=== PATIENT | female | born 1950 | race Caucasian/White ===

== ENCOUNTER 2017-06-24 05:32 | Inpatient (IN) | payer OTHER, MEDICARE ==
[2017-06-16 08:39] VITALS: BMI 40.0
--- NOTE | 2017-06-16 09:17 | PAT Medication Instructions ---
Service Date Jun 16, 2017. Current Home Medication List Acetaminophen (Tylenol), 500 MG PO UD PRN for HEADACHES Cholecalciferol (Vitamin D3), 1 TAB PO 2XWK Citalopram (Citalopram Hydrobromide), 20 MG PO QAM Fluticasone Propionate (Nasal) (Flonase Allergy Relief), 1 DOSE KAREEM PRN PRN for SINUS CONGESTION Levothyroxine Sodium (Levothyroxine Sodium), 0.5 TAB PO QAM Lisinopril (Prinivil), 12.5 MG PO QAM Simvastatin (Zocor), 40 MG PO QPM Tramadol (Ultram), 1-2 TAB PO UD PRN for Pain Zolpidem Tartrate (Zolpidem Tartrate), 1 TAB PO HS [Vtamin C ], 1 DOSE PO 2XWK Medication Instructions For Your Scheduled Surgery - Check with your surgeon for instructions for: Tramadol (Ultram), 1-2 TAB PO UD PRN for Pain - Hold the following medications the morning of surgery: [Vitamin C ], 1 DOSE PO 2XWK Lisinopril (Prinivil), 12.5 MG PO QAM Cholecalciferol (Vitamin D3), 1 TAB PO 2XWK - Take the following medications the morning of surgery with a sip of water: Citalopram (Citalopram Hydrobromide), 20 MG PO QAM Levothyroxine Sodium (Levothyroxine Sodium), 0.5 TAB PO QAM Fluticasone Propionate (Nasal) (Flonase Allergy Relief), 1 DOSE KAREEM PRN PRN for SINUS CONGESTION (if needed) Acetaminophen (Tylenol), 500 MG PO UD PRN for HEADACHES - Take the following medications as scheduled the night before surgery: Zolpidem Tartrate (Zolpidem Tartrate), 1 TAB PO HS Simvastatin (Zocor), 40 MG PO QPM Acetaminophen (Tylenol), 500 MG PO UD PRN for HEADACHES OTHERWISE NOTHING TO EAT OR DRINK AFTER MIDNIGHT If you have any questions please call us at [phone] or [phone] or [phone]
[2017-06-16 09:53] LABS: BASO % 0.2 %; BASO ABS # 0.02 K/uL (0-0.2); COMPLETE YES; EOS % 2.6 %; HEMATOCRIT 46.1 % (37-47); IG% 0.1 %; LYMPH % 24.3 %; LYMPH ABS # 1.96 K/uL (1.2-3.4); MEAN CELL VOLUME 89.7 fL (80-100); MEAN CORPUSCULAR HEMOGLOBIN 29.2 pg (25-34); MEAN CORPUSCULAR HGB CONC 32.5 g/dl (32-36); MEAN PLATELET VOLUME 9.8 fL (7.4-10.4); MONO % 9.8 %; PLATELET COUNT 213 K/uL (130-400); RED BLOOD COUNT 5.14 M/uL (4.2-5.4); WHITE BLOOD COUNT 8.06 K/uL (4.8-10.8)
[2017-06-16 10:02] LABS: PROTHROMBIN TIME (PATIENT) 10.5 SECONDS (9.0-12.0)
--- NOTE | 2017-06-16 10:05 | DIAGNOSTIC IMAGING REPORT ---
CHEST PREADMISSION(PA/LAT) CLINICAL HISTORY: 67 years-old Female presenting with preoperative assessment. TECHNIQUE: PA and lateral views of the chest were obtained. COMPARISON: None. FINDINGS: Atherosclerosis of aortic arch. Cardiac silhouette normal in size. Mildly low lung volumes with hypoventilatory changes. Lungs and pleural spaces clear. Degenerative changes of the thoracic spine. Upper abdomen normal. IMPRESSION: 1. No acute cardiopulmonary disease. Electronically signed by: Weston Joyce M.D. 06/16/2017 10:03 AM Dictated Date/Time: 06/16/2017 10:03 AM
[2017-06-16 10:08] LABS: MANUAL MICROSCOPIC REQUIRED? NO; REVIEW REQ? NO; URINE APPEARANCE CLEAR (CLEAR); URINE BILIRUBIN NEG (NEG); URINE COLOR YELLOW; URINE EPITHELIAL CELL AUTO >30 /lpf (0-5); URINE NITRITE NEG (NEG); URINE PH 6.5 (4.5-7.5); URINE SPECIFIC GRAVITY 1.018 (1.000-1.030); UROBILINOGEN NEG (NEG)
[2017-06-16 11:07] LABS: ESTIMATED AVERAGE GLUCOSE 140 mg/dl; HA1C FLAG Normal (Normal)
[2017-06-16 11:14] LABS: BUN/CREATININE RATIO 18.4 (10-20); CALCIUM 9.4 mg/dl (8.5-10.1); CREATININE 0.82 mg/dl (0.60-1.20); POTASSIUM 4.4 mmol/L (3.5-5.1)
--- NOTE | 2017-06-23 13:42 | HISTORY & PHYSICAL EXAMINATION ---
DATE OF ADMISSION: 06/24/2017 HISTORY OF PRESENT ILLNESS: This is a very pleasant 67-year-old white female, 5 foot,205 pounds with complaints of ongoing pain attributed to her left knee. She presents for left knee DJD for left total knee arthroplasty. She has failed attempts at conservative management including physical therapy, anti-inflammatories, relative rest, activity modification, injections, viscosupplementations and presents for left total knee arthroplasty. PAST MEDICAL HISTORY: Significant for anxiety. She denies history of hypertension, hypercholesterolemia or other medical problems. No history of diabetes or thyroid disease is noted. FAMILY HISTORY: Otherwise unremarkable and noncontributory. SOCIAL HISTORY: The patient denies history of alcohol use. Denies smoking or recreational drug use. ALLERGIES: None. MEDICATIONS: Include lisinopril 10 mg p.o. daily, simvastatin 40 mg p.o. at bedtime, levothyroxine 125 mcg one-half tab p.o. daily, tramadol 50 mg p.o. 4 times daily. PAST SURGICAL HISTORY: Significant for tonsillectomy in 1961, tubal ligation in 1976, trigger thumb in 2003, trigger finger in 2011, colonoscopy in 2011. REVIEW OF SYSTEMS: Otherwise unremarkable. See history of present illness for pertinent positives. PHYSICAL EXAMINATION: GENERAL: A very pleasant 67-year-old white female, alert and oriented x3. HEENT: Atraumatic, normocephalic. HEART: Regular at 72 beats per minute. No murmurs noted. LUNGS: Clear. No rales, rhonchi, or wheezes noted. ABDOMEN: Soft, nontender, nondistended. Bowel sounds are present in all 4 quadrants. RECTAL: No rectal examination was performed. MUSCULOSKELETAL: Consistent with that of severe end-stage DJD of the left knee. IMAGING DATA: X-rays revealed there to be evidence of varus alignment, subchondral sclerosis, subchondral cystic changes and medial osteophyte changes. PLAN: Total knee arthroplasty, postoperative pain management, DVT prophylaxis as noted is noted. MTDD
[~2017-06-24] VITALS: Ht 152.4 cm; Wt 94.7 kg
[2017-06-24] VITALS (8 sets, daily range): BP systolic 94–129; BP diastolic 62–85; PULSE 62–78; TEMP 36.3–36.8; O2SAT 92–98; Ht 152.4 cm; Wt 94.7 kg
[~2017-06-24 05:32] MED LIST: ACET-1256 PO; AMB/10 PO; CHOL1000 PO; CITA40TA4 PO; FLUT0.15 NAE; LEVO125T4 PO; LISI10TA PO; SIMV40TA2 PO; TRAM-10 PO; [UNRECOGNIZED DRUG - OTHER] PO
[2017-06-24] MEDS ORDERED: CEFAZOLIN 2000 MG/60 ML D5W 60 ML IV SCH (06:00)
[2017-06-24] MEDS ORDERED: LACTATED RINGER'S 1000ML IV SCH (06:00)
[2017-06-24] MEDS ORDERED: CeleBREX 200 MG CAP PO SCH (06:00)
[2017-06-24] MEDS ORDERED: LACTATED RINGER'S 1000ML 1,000 ML IV SCH (06:00)
[2017-06-24] MEDS ORDERED: FAMOTIDINE 20 MG TAB PO SCH (06:00)
[2017-06-24] MEDS ORDERED: ACETAMINOPHEN 500 MG TAB PO SCH (06:00)
[2017-06-24] MEDS ORDERED: LACTATED RINGER'S 1000ML 500 ML IV ONE (06:00)
[2017-06-24] MEDS ORDERED: DEXAMETHASONE 4 MG TAB PO SCH (06:00)
[2017-06-24] MEDS ORDERED: GABAPENTIN 300 MG CAP PO SCH (06:00)
[2017-06-24] MEDS ORDERED: ROPIVACAINE 5MG/ML 30 ML 150 MG, BUPIVACAINE/EPINEPHR 0.5% MPF 30 ML, KETOROLAC TROMETH... INFIL SCH ×7 (06:00)
[2017-06-24] MEDS ORDERED: METOCLOPRAMIDE HCL 10 MG TAB PO SCH (06:00)
[2017-06-24] MEDS ORDERED: BUPIVACAINE 0.5 % 5 MG/1 ML PF 10ML VIAL ONE (06:31)
[2017-06-24] MEDS ORDERED: BUPIVACAINE 0.25% 30 ML VIAL ONE (06:31)
[2017-06-24] MEDS: TRANEXAMIC ACID INJ 1,000 MG in SODIUM CHLORIDE 0.9% 100ML 100 ML IV SCH ×2 (06:35→10:39)
[2017-06-24] MEDS ORDERED: MIDAZOLAM HCL 1 MG/ML 2ML VIAL ONE ×2 (06:57→08:30)
--- NOTE | 2017-06-24 07:08 | History & Physical Bridge Note ---
H&P Re-Evaluation Bridge Note: I have examined the patient, reviewed the History & Physical and in the interval since the performance of the History & Physical I have noted the following changes of clinical significance: No changes noted
[2017-06-24] MEDS ORDERED: ORTHO JOINT ANESTHETIC ONE (07:14)
[2017-06-24] MEDS ORDERED: POVIDONE-IODINE OP SOLN 30 ML BTL ONE (07:15)
[2017-06-24] MEDS ORDERED: BACITRACIN 50000 UNIT VIAL ONE (07:15)
[2017-06-24] MEDS ORDERED: KETAMINE HCL INJ 50 MG/ML 10 ML VIAL ONE (08:47)
[2017-06-24] MEDS ORDERED: SODIUM CHLORIDE 0.9% INJ 10 ML VIAL ONE (08:47)
[2017-06-24] MEDS ORDERED: LIDOCAINE HCL 2% 2 ML VIAL (20MG/ML) ONE (08:52)
[2017-06-24] MEDS ORDERED: GLYCOPYRROLATE INJ 0.2 MG/ML VIAL ONE (08:52)
[2017-06-24] MEDS ORDERED: PROPOFOL IV EMULSION 10 MG/ML 20 ML VIAL IV ONE ×2 (08:52→09:10)
[2017-06-24] MEDS ORDERED: LABETALOL HCL IV 5 MG/ML 20ML IV PRN (09:15)
[2017-06-24] MEDS ORDERED: HYDROmorphone INJ 1 MG/ML SYR IV PRN (09:15)
[2017-06-24] MEDS ORDERED: ATROPINE SULFATE 0.1 MG/ML 5ML SYR IV PRN (09:15)
[2017-06-24] MEDS ORDERED: EpHEDrine SULFATE INJ 50 MG/ML AMP IV PRN (09:15)
[2017-06-24] MEDS ORDERED: ONDANSETRON INJ 2 MG/ML 2 ML VIAL IV PRN ×2 (09:15→10:00)
[2017-06-24] MEDS ORDERED: FENTANYL CITRATE INJ 50 MCG/1 ML 2 ML VIAL IV PRN (09:15)
[2017-06-24] MEDS ORDERED: MEPERIDINE HCL 25 MG/ML CARP IV PRN (09:15)
--- NOTE | 2017-06-24 09:27 | [facility] Operative Report ---
Operative Report Operative Date Jun 24, 2017. Pre-Operative Diagnosis Left Knee Degenerative Joint Disease Post-Operative Diagnosis Left Knee Degenerative Joint Disease Procedure(s) Performed Left Total Knee Arthroplasty Cemented utilizing Small & Nephew journey 2 patient matched total knee arthroplasty size 3 femur to tibia 12 poly-[address] Nathan Roberts Auditing Specialist Surgeon(s) Barbie Escoto PA-C Estimated Blood Loss 5cc Findings Patient presents with severe end-stage Tri-Chlor milligrams degenerative joint disease after failing attempts at conservative management including injections anti-inflammatories activity modifications bracing presents for total knee arthroplasty times surgery noted to be evidence of medial osteophyte subchondral sclerosis varus alignment DJD of the knee Specimens As Per Surgeon Izzy Bello. Left Knee Bone and Tissue Complication(s) None Disposition Recovery Room / PACU Indications Patient presents after failing times a conservative management including physical therapy anti-inflammatories relative rest activity modification bracing presents for left total knee arthroplasty. Description of Procedure After proper prepping and draping of the left lower extremity anterior midline incision was made over the region of the extensor extensor mechanism after meticulous hemostasis was obtained and maintained in subcutaneous tissues a medial parapatellar incision was made The patella was subluxed lateralward the medial lateral gutter were cleaned from any hypertrophic synovitis and scar tissue of the distal femoral block was placed and the distal femoral osteotomy cut was made subsequently the chamfers anterior and posterior osteotomy cuts were made utilizing the 4-in-1 block the tibia was subsequently subluxed anteriorward medial and ateral meniscal remnants were excised in their entirety remnants of the anterior and posterior cruciate ligaments were excised in their entirety excellent exposure of the proximal tibia was obtained the tibial osteotomy guide was placed on the proximal tibial osteotomy cut was made once again the knee was irrigated with copious amounts of sterile saline solution the patella was subsequently everted lateralward thickened scar tissue around the patella was removed the patella was subsequently cut utilizing a freehand technique and was drilled prepared for final preparation and placement of patella socially flexion-extension gaps were checked and the equal and symmetric trials were placed to the appropriate femoral and tibial trials with poly-spacer being placed for equal flexion and extension gaps and full range of motion including extension to 0 and flexion to 140 the trial components after having been taken to recovery range of motion was subsequently removed meticulous hemostasis was obtained and maintained subsequently a knee block injection of joint cocktail including ropivacaine 0.5% 150 mg. Bupivacaine 0.5 % epinephrine 1-200,030 mL's toradol 30 mg dexamethasone 4 mg ketamine 10 mg clonidine 100 micrograms normal saline solution 30 mg was infiltrated into the soft tissues of the posterior knee medial lateral gutters and periosteal synovium special attention was paid to protect neurovascular structures at all times subsequently trial components having been removed the knee was irrigated with sterile saline solution. debris was removed the proximal tibia was subsequently prepared and was made ready for the placement of the tibial component tibial component was also cemented and tamped into position the femoral component was subsequently placed and cemented in the position the patellar component was subsequently cemented in position because hemostasis once again obtained and maintained wound having been thoroughly irrigated with debridement and debridement lavage was performed as well as a medial parapatellar incision closed with #1 Vicryl in interrupted fashion subcutaneous was closed with #2 Vicryl skin was closed with skin clips. PA-C was necessary for prepping and drapping as well as wound closure of deep fascia Sub cutaneous tissue and skin and was necessary for the case. A sterile compressive dressing was placed patient was taken to recovery in stable condition of report dictated by Armando I attest to the content of the Intraoperative Record and any orders documented therein. Any exceptions are noted below. I attest to the content of the Intraoperative Record and any orders documented therein. Any exceptions are noted below.
[2017-06-24] MEDS ORDERED: MoRPHine SULFATE 2 MG/ML CARP IV PRN (10:00)
[2017-06-24] MEDS ORDERED: FLUTICASONE PROPIONATE NA SPR 16 GM BTL NAE PRN (10:00)
[2017-06-24] MEDS ORDERED: ALUMINUM/MAGNESIUM/SIMETH (MAALOX MAX) 30 ML UDC PO PRN (10:00)
[2017-06-24] MEDS ORDERED: SOD PHOSPHATE/SOD BIPHOSPHATE ENEMA 132 ML BTL PR PRN (10:00)
[2017-06-24] MEDS ORDERED: MAGNESIUM HYDROXIDE SUSP 30 ML UDC PO PRN (10:00)
[2017-06-24] MEDS ORDERED: BISACODYL 10 MG SUPP PR PRN (10:00)
--- NOTE | 2017-06-24 10:39 | DIAGNOSTIC IMAGING REPORT ---
L KNEE 1 OR 2 VIEWS ROUTINE CLINICAL HISTORY: Postoperative evaluation. COMPARISON: None FINDINGS: Alignment of the total left knee arthroplasty is anatomic. There is no periprosthetic fracture or unexpected radiopaque foreign body. Surgical drains are in place. IMPRESSION: Expected findings following total left knee arthroplasty. Electronically signed by: Carlitos Ashley M.D. 06/24/2017 10:38 AM Dictated Date/Time: 06/24/2017 10:37 AM
--- NOTE | 2017-06-24 11:01 | Anesthesiology Progress Note ---
Anesthesia Post Op Note Date & Time Jun 24, 2017 at 11:01 Vital Signs Pain Intensity: 0 Vital Signs Past 12 Hours Date Time Temp Pulse Resp B/P (MAP) Pulse Ox O2 Delivery O2 Flow Rate FiO2 06/24/17 10:40 36.4 74 18 97/65 96 2 06/24/17 10:30 36.4 67 18 96 2 06/24/17 10:20 74 18 96/51 95 2 06/24/17 10:10 73 16 97/65 95 2 06/24/17 10:00 77 16 107/95 97 2 06/24/17 09:54 36.8 79 16 109/69 95 2 06/24/17 05:58 36.7 78 20 129/85 98 Room Air Notes Mental Status: alert / awake / arousable, participated in evaluation Pt Amnestic to Procedure: Yes Nausea / Vomiting: adequately controlled Pain: adequately controlled Airway Patency, RR, SpO2: stable & adequate BP & HR: stable & adequate Hydration State: stable & adequate Neuraxial Anesthesia: was administered, sensory block is resolving Anesthetic Complications: no major complications apparent
[2017-06-24] MEDS: D5W AND 1/2NSS + 20MEQ KCL 1,000 ML IV SCH ×2 (12:27→21:39)
[2017-06-24] MEDS: ACETAMINOPHEN 500 MG TAB PO SCH ×2 (15:29→21:39)
[2017-06-24] MEDS ORDERED: CEFAZOLIN 2000MG IV PUSH 10 ML IV SCH (16:00)
[2017-06-24] MEDS: KETOROLAC TROMETHAMINE 15 MG/ML VIAL IV. SCH ×2 (16:04→21:39)
[2017-06-24] MEDS: CEFAZOLIN IV 2,000 MG in SYRINGE 0 ML IV SCH ×2 (16:24→23:57)
[2017-06-24] MEDS: ASPIRIN 81 MG ECTAB PO SCH (20:59)
[2017-06-24] MEDS: ZOLPIDEM TARTRATE 5 MG TAB PO PRN ×2 (20:59→22:45)
[2017-06-24] MEDS: SIMVASTATIN 40 MG TAB PO SCH (20:59)
[2017-06-24] MEDS: SENNA 8.6 MG TAB PO SCH (20:59)
[2017-06-25] VITALS (8 sets, daily range): BP systolic 102–123; BP diastolic 69–76; PULSE 62–76; TEMP 36.6–37; O2SAT 91–96
[2017-06-25] MEDS: KETOROLAC TROMETHAMINE 15 MG/ML VIAL IV. SCH ×2 (04:06→10:32)
[2017-06-25] MEDS: ACETAMINOPHEN 500 MG TAB PO SCH ×3 (05:51→21:58)
[2017-06-25] MEDS: LEVOTHYROXINE 125 MCG TAB PO SCH (05:51)
[2017-06-25 06:13] LABS: HEMATOCRIT 40.8 % (37-47); MEAN CELL VOLUME 89.3 fL (80-100); MEAN CORPUSCULAR HEMOGLOBIN 28.9 pg (25-34); MEAN CORPUSCULAR HGB CONC 32.4 g/dl (32-36); MEAN PLATELET VOLUME 10.4 fL (7.4-10.4); PLATELET COUNT 207 K/uL (130-400); RED BLOOD COUNT 4.57 M/uL (4.2-5.4); WHITE BLOOD COUNT 14.99 K/uL (4.8-10.8)
[2017-06-25 06:45] LABS: BUN/CREATININE RATIO 14.9 (10-20); CALCIUM 8.5 mg/dl (8.5-10.1); CREATININE 0.85 mg/dl (0.60-1.20); POTASSIUM 3.9 mmol/L (3.5-5.1)
[2017-06-25] MEDS: D5W AND 1/2NSS + 20MEQ KCL 1,000 ML IV SCH (08:07)
[2017-06-25] MEDS: OXYCODONE HCL IR 5 MG TAB (IMMEDIATE RELEASE) PO PRN ×3 (08:36→19:36)
--- NOTE | 2017-06-25 09:00 | Orthopedic Progress Note ---
Orthopedic Progress Note Date of Service Jun 25, 2017. Subjective Post OP Day: 1 Reports: feeling well Objective N/V intact, dressing C/D/I (Hemovac in place), toes mobile Date Time Temp Pulse Resp B/P (MAP) Pulse Ox O2 Delivery O2 Flow Rate FiO2 06/25/17 07:20 Room Air 06/25/17 07:10 36.8 69 24 102/69 (80) 96 Room Air 06/25/17 03:46 36.6 62 16 107/70 (82) 96 Room Air 06/24/17 23:55 Room Air 06/24/17 23:05 36.8 63 16 102/66 (78) 93 Room Air 06/24/17 19:00 36.4 62 16 105/65 (78) 92 Room Air 06/24/17 15:45 36.5 71 16 104/66 (79) 93 Room Air 06/24/17 15:30 Room Air 06/24/17 14:08 36.5 77 16 94/66 (75) 95 2.0 06/24/17 13:07 36.3 77 16 96/63 (74) 96 2.0 06/24/17 11:58 36.3 68 16 104/70 (81) 94 2.0 06/24/17 11:27 73 16 97/62 (74) 95 2.0 06/24/17 11:00 Nasal Cannula 2.0 06/24/17 11:00 Nasal Cannula 2.0 06/24/17 10:40 36.4 74 18 97/65 96 2 06/24/17 10:30 36.4 67 18 96 2 06/24/17 10:20 74 18 96/51 95 2 06/24/17 10:10 73 16 97/65 95 2 06/24/17 10:00 77 16 107/95 97 2 06/24/17 09:54 36.8 79 16 109/69 95 2 Laboratory Results 24 Hours: Test 06/25/17 05:55 Hematocrit 40.8 % Hemoglobin 13.2 g/dL Assessment & Plan Assessment: 67 yo female stable POD #1 s/p left TKA Plan: 1. Med management 2. DVT prophylaxis- ASA, SCDs 3. PT/OT 4. D/C planning- home w/ OPPT
[2017-06-25] MEDS: CITALOPRAM 20 MG TAB PO SCH (09:48)
[2017-06-25] MEDS: ASPIRIN 81 MG ECTAB PO SCH ×2 (09:49→20:32)
[2017-06-25] MEDS: MULTIVITAMIN TAB PO SCH (09:51)
[2017-06-25] MEDS: LISINOPRIL 5 MG TAB PO SCH (09:53)
[2017-06-25] MEDS: PANTOprazole SOD 40 MG TAB PO SCH (09:54)
--- NOTE | 2017-06-25 12:43 | Anesthesiology Progress Note ---
Anesthesia Post Op Note Date & Time Jun 25, 2017 at 12:42 Vital Signs Pain Intensity: 3.0 Vital Signs Past 12 Hours Date Time Temp Pulse Resp B/P (MAP) Pulse Ox O2 Delivery O2 Flow Rate FiO2 06/25/17 11:20 36.7 76 24 108/70 (83) 91 Room Air 06/25/17 10:50 96 Room Air 06/25/17 07:20 Room Air 06/25/17 07:10 36.8 69 24 102/69 (80) 96 Room Air 06/25/17 03:46 36.6 62 16 107/70 (82) 96 Room Air Notes Mental Status: alert / awake / arousable, participated in evaluation Pt Amnestic to Procedure: Yes Nausea / Vomiting: adequately controlled Pain: adequately controlled Airway Patency, RR, SpO2: stable & adequate BP & HR: stable & adequate Hydration State: stable & adequate Anesthetic Complications: no major complications apparent
[2017-06-25] MEDS: CeleBREX 200 MG CAP PO SCH (20:32)
[2017-06-25] MEDS: SENNA 8.6 MG TAB PO SCH (20:32)
[2017-06-25] MEDS: ZOLPIDEM TARTRATE 5 MG TAB PO PRN ×2 (20:32→21:58)
[2017-06-25] MEDS: SIMVASTATIN 40 MG TAB PO SCH (20:32)
[2017-06-26] MEDS: LEVOTHYROXINE 125 MCG TAB PO SCH (05:24)
[2017-06-26] MEDS: OXYCODONE HCL IR 5 MG TAB (IMMEDIATE RELEASE) PO PRN ×2 (05:25→10:04)
[2017-06-26] MEDS: ACETAMINOPHEN 500 MG TAB PO SCH (05:25)
[2017-06-26 06:18] VITALS: BP 116/77; PULSE 79; TEMP 36.9; O2SAT 95
[2017-06-26] MEDS: MULTIVITAMIN TAB PO SCH (07:32)
[2017-06-26] MEDS: CITALOPRAM 20 MG TAB PO SCH (07:32)
[2017-06-26] MEDS: PANTOprazole SOD 40 MG TAB PO SCH (07:32)
[2017-06-26] MEDS: ASPIRIN 81 MG ECTAB PO SCH (07:32)
[2017-06-26] MEDS: CeleBREX 200 MG CAP PO SCH (07:33)
[2017-06-26] MEDS: LISINOPRIL 5 MG TAB PO SCH (07:34)
--- NOTE | 2017-06-26 08:06 | Orthopedic Progress Note ---
Orthopedic Progress Note Date of Service Jun 26, 2017. Subjective Post OP Day: 2 Reports: feeling well Objective N/V intact, incision C/D/I, toes mobile Date Time Temp Pulse Resp B/P (MAP) Pulse Ox O2 Delivery O2 Flow Rate FiO2 06/26/17 06:18 36.9 79 16 116/77 (90) 95 Room Air 06/26/17 00:04 Room Air 06/25/17 23:00 36.8 76 16 116/73 (87) 93 Room Air 06/25/17 19:20 Room Air 06/25/17 19:10 36.8 72 17 117/76 (90) 96 Room Air 06/25/17 15:10 37.0 76 17 123/71 (88) 96 Room Air 06/25/17 11:20 36.7 76 24 108/70 (83) 91 Room Air 06/25/17 10:50 96 Room Air Assessment & Plan Assessment: 67 yo female stable POD #2 s/p left TKA Plan: 1. Med management 2. DVT prophylaxis- ASA, SCDs 3. PT/OT 4. D/C planning- home w/ OPPT
[2017-06-26] MEDS ORDERED: RXC5 PO (08:08)
[2017-06-26] MEDS ORDERED: ASPEC81 PO (08:08)
[2017-06-26] MEDS ORDERED: CLB200 PO (08:08)
[2017-06-26] MEDS ORDERED: ACET-24 PO (08:08)
[2017-06-26] MEDS ORDERED: ONDA8TAB12 PO (08:08)
--- NOTE | 2017-06-26 08:09 | Discharge Instructions ---
Discharge Instructions Date of Service Jun 26, 2017. Admission Reason for Admission: Left Knee Osteoarthritis Discharge Discharge Diagnosis / Problem: Left knee arthritis Discharge Goals Goal(s): Decrease discomfort, Improve function Activity Recommendations Activity Limitations: as noted below Weightbearing Status: Left weightbearing (as tolerated) . Instructions / Follow-Up Instructions / Follow-Up ACTIVITY RECOMMENDATIONS: SELF CARE INSTRUCTIONS AFTER TOTAL KNEE REPLACEMENT A. You may need to continue a physical therapy program after discharge from the hospital. There are several options available to you. Your doctor will assist you in selecting the best one for you. 1. An out-patient facility 2 to 3 times a week for therapy or home therapy. 2. Continue working on all exercises taught to you in the hospital. Your goals should be to increase bending of your knee to 90 degrees and beyond and to fully straighten your knee. B. You may progress at your own pace from walking with a walker or crutches to a cane; then to no assistive devices. C. Make walking a part of your daily routine. Be up as much as comfortable with rest periods throughout the day. Rest with leg elevation is very important. Use the ice wrap frequently for the first 3-4 weeks. D. There are no restrictions on activities. You may ride in a car, shop, participate in vat cleaner and all social activities. E. Wear the long elastic stockings (BRYANT hose) 20 hours a day for 2 weeks after surgery. They can be removed several times a day for laundering and for a bath. F. You may shower, no tub baths until cleared by your doctor. SPECIAL CARE INSTRUCTIONS: VERY IMPORTANT TO READ AND REVIEW A. There are a few signs you need to watch for after you are home. Call [facility] [place] if you notice any of the followin. Increased severe knee pain. Some pain is expected especially when you exercise. 2. Increased swelling in your leg or knee; pain or swelling of the calf muscle in either lower leg. 3. Any fluid drainage from the incision. 4. Shortness of breath or chest pain. B. Please call [facility] [place] at if you have any concerns or questions about your operation or recovery. The doctor or his nurse will return your call promptly. C. You must take antibiotics before dental work, bladder, bowel or other surgery. Your doctor will provide you with a permanent care to carry describing this precaution. IMPORTANT: * REMEMBER TO TAKE ASPIRIN, 81 MG, TWICE DAILY FOR 4 WEEKS UNLESS OTHERWISE DIRECTED. THIS IS YOUR BLOOD THINNER. * HIGH RISK PATIENTS MAY BE PRESCRIBED A STRONGER BLOOD THINNER. THIS WILL BE PROVIDED AT DISCHARGE. * CALL IF INCREASED PAIN, REDNESS, DRAINAGE OR FEVER GREATER THAT 101. * WEAR BRYANT HOSE 20 HOURS PER DAY FOR 2 WEEKS. FOLLOW UP VISIT: If appointment is not already scheduled: Please call [facility] to make a follow-up appointment for 2 weeks after your surgery at . Current Hospital Diet Patient's current hospital diet: Regular Diet Discharge Diet Recommended Diet: Regular Diet Procedures Procedures Performed: Left Total Knee Arthroplasty Cemented utilizing Small & Neph[employer]airMail journey 2 patient matched total knee arthroplasty size 3 femur to tibia 12 poly-29 oval patella Pending Studies Studies pending at discharge: no Laboratory Results Hemoglobin A1c Test 06/16/17 09:30 Range/Units Estimated Average Glucose 140 mg/dl Hemoglobin A1c 6.5 H 4.5-5.6 % Medical Emergencies . Who to Call and When: Medical Emergencies: If at any time you feel your situation is an emergency, please call 911 immediately. . Non-Emergent Contact Non-Emergency issues call your: Surgeon Call Non-Emergent contact if: temperature is above 101.5, your pain is not controlled, wound has increased drainage, wound has increased redness . "Provider Documentation" section prepared by Roc Nuno PA-C. . VTE Core Measure Inpt VTE Proph given/why not?: Other Anticoagulation (ASA), T.E.D. Stockings, SCD's [place] Drug Monitoring Program Search Results: patient reviewed within database, no issues identified
[2017-06-26 09:48] VITALS: BP 116/77; PULSE 79; TEMP 36.9; O2SAT 95
--- NOTE | 2017-06-29 13:09 | DISCHARGE SUMMARY ---
DISCHARGE DIAGNOSIS: Degenerative joint disease, left knee. SECONDARY DIAGNOSIS: None. CONSULTS: None. COMPLICATIONS: None. PROCEDURE: The patient underwent a left total knee arthroplasty with Dr. Roberts on 06/24/2017. BRIEF HISTORY: Please see previously dictated history and physical. HOSPITAL SUMMARY: The patient was admitted on the above day for the above procedure. Procedure went without complication. Postop day 1, the patient was feeling well without complaints. She denied chest pain or shortness of breath. Vital signs were stable. She was afebrile. Dressing was clean, dry and intact. She was neurovascularly intact. Calves were soft and nontender. Hemoglobin was 13.2. The patient began physical therapy per protocol. Postop day 2, the patient continued to improve. She denied chest pain or shortness of breath. Vital signs were stable. She was afebrile. The patient continued to progress with physical therapy. She was discharged home later that day in stable condition. For further review please see the chart. Lab, x-ray data and discharge instructions as per chart.
== END 2017-06-26 11:30 | disposition home health service (06) | DRG 470 ==
LOC: C.ACU 05:32 → C.MSW 10:05 → ENRESERV 10:29
PROVIDERS: ADMIT Orthopaedic Surgery; ATTEND Orthopaedic Surgery
PROC: 0SRD0J9 Replacement of Left Knee Joint with Synthetic Substitute, Cemented, Open Approach (ICD-10-PCS; principal; 2017-06-24 08:00)
DX: M17.12 Unilateral primary osteoarthritis, left knee (principal); F41.9 Anxiety disorder, unspecified; I10 Essential (primary) hypertension; E78.5 Hyperlipidemia, unspecified